=== PATIENT | female | born 1945 | race Caucasian/White ===

== ENCOUNTER 2022-02-12 09:02 | Day surgery (SDC) | payer MEDICARE, OTHER ==
[~2022-02-12] VITALS: Ht 167.6 cm; Wt 96.4 kg
[~2022-02-12 09:02] MED LIST: ASPI81CH PO; ATEN100 PO; ERGO50000 PO; FISH1000 PO; GEMF600 PO; GLIM4 PO; INSULANI SC; INSULANPEN SC; LEVSOD88 PO; METF500 PO; METO100ER PO; MULVITMIND PO; Macrodantin50 MG PO; NEBI10 PO; NITROFURANTOIN 50 MG; TAMO10 PO; TOLT4 PO; WARF5 PO
[2022-02-12] MEDS ORDERED: INSULANI (09:27)
[2022-02-12] MEDS ORDERED: NOVOLOG100 UNIT/2 (09:28)
[2022-02-12] MEDS ORDERED: INSULANI SC (09:28)
[2022-02-12] MEDS ORDERED: LISI20 PO (09:29)
--- NOTE | 2022-02-12 15:28 | NUR ---
02/12/22 Jennifer8 ISABEL SINGH FLUIDS USED WAS 500 NORMAL SALINE.
== END 2022-02-12 11:50 | disposition home or self-care (01) ==
LOC: ORSCSDS 09:02
PROVIDERS: Student in an Organized Health Care Education/Training Program
PROC: 08RJ3JZ Replacement of Right Lens with Synthetic Substitute, Percutaneous Approach (ICD-10-PCS; principal; 2022-02-12 10:30)
DX: H25.13 Age-related nuclear cataract, bilateral (principal); H40.1230 Low-tension glaucoma, bilateral, stage unspecified; E11.9 Type 2 diabetes mellitus without complications; I10 Essential (primary) hypertension; H40.9 Unspecified glaucoma; E66.9 Obesity, unspecified; Z68.34 Body mass index [BMI] 34.0-34.9, adult; Z79.4 Long term (current) use of insulin
CPT/HCPCS: 82947; J2001; J2250; J3010; J7040; J7120; V2632

== ENCOUNTER → 2022-02-26 | Outpatient (CLI) | payer MEDICARE, OTHER ==
[~2022-02-26] MED LIST changes: +INSULANI; +LISI20 PO; +NOVOLOG100 UNIT/2
== END ==
LOC: LAB 10:00 → LAB SHORT 10:00
DX: N30.10 Interstitial cystitis (chronic) without hematuria (principal)
CPT/HCPCS: 87086

== ENCOUNTER → 2022-04-19 | Outpatient (CLI) | payer MEDICARE, OTHER | LOC: LAB 14:56 → LAB SHORT 14:56 | DX: R30.0 Dysuria (principal) | CPT/HCPCS: 87077; 87086; 87186 ==

== ENCOUNTER 2022-11-10 18:10 | Emergency (ER) | payer MEDICARE, OTHER ==
[~2022-11-10] VITALS: Ht 167.6 cm; Wt 99.8 kg
[2022-11-10 18:24] VITALS: BP 144/102
[2022-11-10] MEDS ORDERED: Robaxin750 MG PO (19:36)
[2022-11-10] MEDS ORDERED: LIDO700A20 TOP (19:36)
== END 2022-11-10 20:28 | disposition home or self-care (01) ==
LOC: ER 18:10
DX: M54.41 Lumbago with sciatica, right side (principal); E11.9 Type 2 diabetes mellitus without complications; I10 Essential (primary) hypertension; Z79.82 Long term (current) use of aspirin; Z79.4 Long term (current) use of insulin; Z79.899 Other long term (current) drug therapy
CPT/HCPCS: 96372; 99283-25; A9270; J1885

== ENCOUNTER 2022-11-25 08:47 | Emergency (ER) | payer MEDICARE, OTHER ==
[~2022-11-25] VITALS: Ht 167.6 cm; Wt 95.2 kg
[~2022-11-25 08:47] MED LIST changes: +LIDO700A20 TOP; +Robaxin750 MG PO
[2022-11-25 09:56] LABS: BASOPHILS ABSOLUTE AUTO 0.01 K/mm3 (0.00-0.23); BASOPHILS PERCENT AUTO 0 % (0-2); EOSINOPHILS ABSOLUTE AUTO 0.01 K/mm3 (0.00-0.68); EOSINOPHILS PERCENT AUTO 0 % (0-6); Hematocrit 45.6 % (33.0-51.0); Hemoglobin 15.2 g/dL (11.5-16.0); IMMATURE GRAN ABSOLUTE AUTO 0.01 K/mm3 (0.00-0.10); IMMATURE GRAN PERCENT AUTO 0 % (0-1); LYMPHOCYTES ABSOLUTE AUTO 0.58 K/mm3 (0.84-5.20); LYMPHOCYTES PERCENT AUTO 10 % (21-46); MONOCYTES ABSOLUTE AUTO 0.49 K/mm3 (0.16-1.47); MONOCYTES PERCENT AUTO 9 % (4-13); Mean Corpuscular HGB 28.8 pg (26.0-34.0); Mean Corpuscular HGB Conc 33.3 g/dL (31.5-36.5); Mean Corpuscular Volume 87 fL (80-100); Mean Platelet Volume 10.9 fL (9.1-12.4); NEUTROPHILS ABSOLUTE AUTO 4.57 K/mm3 (1.96-9.15); NEUTROPHILS PERCENT AUTO 81 % (41-73); Platelet Count 150 K/mm3 (150-400); RDW Coefficient Variation 12.8 % (11.7-14.2); RDW Standard Deviation 40.5 fL (35.1-46.3); Red Blood Cell Count 5.27 M/mm3 (3.80-5.20); White Blood Cell Count 5.67 K/mm3 (4.00-11.30)
[2022-11-25 10:12] LABS: Albumin, Blood 2.9 g/dL (3.4-5.0); Albumin/Globulin Ratio 0.7 (0.8-1.8); Bilirubin, Total 0.7 mg/dL (0.1-1.0); Bun/Creatinine Ratio 23.2 (12.0-20.0); Calcium, Blood 8.4 mg/dL (8.5-10.1); Creatinine, Blood 0.48 mg/dL (0.40-1.00); Globulin, Blood 4.1 g/dL (2.2-4.0); Potassium, Blood 4.9 mmol/L (3.5-5.5)
[2022-11-25 10:30] VITALS: BP 167/98
[2022-11-25] MEDS ORDERED: ONDA4ODT MM (10:32)
[2022-11-25] MEDS ORDERED: AZIT250 PO (10:32)
== END 2022-11-25 11:02 | disposition home or self-care (01) ==
LOC: ER 08:47
PROVIDERS: Emergency Medicine
DX: U07.1 COVID-19 (principal); J18.9 Pneumonia, unspecified organism; E11.9 Type 2 diabetes mellitus without complications; I10 Essential (primary) hypertension
CPT/HCPCS: 71045; 80053; 85025; 96360; 99284-25; J7030